=== PATIENT | male | born 1985 | race Caucasian/White ===

== ENCOUNTER 2020-07-12 18:17 | Emergency (ER) | payer OTHER ==
[~2020-07-12] VITALS: Ht 170.2 cm; Wt 63.5 kg
[2020-07-12 18:57] LABS: ABSOLUTE BASOPHILS 0.1 thou/uL (0.0-0.2); ABSOLUTE EOSINOPHILS 0.2 thou/uL (0.0-0.7); ABSOLUTE LYMPHOCYTES 2.7 thou/uL (0.8-5.3); ABSOLUTE MONOCYTES 1.2 thou/uL (0.0-1.2); ABSOLUTE NEUTROPHILS 7.1 thou/uL (1.6-8.1); BASOPHILS 1.1 %; EOSINOPHILS 1.9 %; HEMATOCRIT 48.2 % (42.0-52.0); HEMOGLOBIN 16.2 gm/dL (14.0-18.0); MCH 31.4 pg (26.0-34.0); MCHC 33.7 g/dL (28.0-37.0); MCV 93.1 fL (80.0-100.0); MONOCYTES 10.5 %; MPV 7.8 fl. (7.2-11.1); NUCLEATED RBCS 0 /100WBC; PLATELET COUNT* 236 thou/uL (150-400); POLYS 62.5 %; RBC 5.17 mil/uL (4.50-6.00); RDW-CV 13.5 % (10.5-14.5); WBC 11.4 thou/uL (4.0-11.0)
[2020-07-12 19:06] LABS: CALCIUM 8.7 mg/dL (8.5-10.1); CREATININE 1.1 mg/dL (0.6-1.3); POTASSIUM 3.8 mmol/L (3.5-5.1)
[2020-07-12 19:10] LABS: ALBUMIN 3.7 g/dL (3.4-5.0); TOTAL BILIRUBIN 0.3 mg/dL (<0.1-1.0); TOTAL PROTEIN 7.1 g/dL (6.4-8.2)
[2020-07-12 19:42] LABS: URINE BILIRUBIN NEGATIVE (Negative); URINE BLOOD 3+ (Negative); URINE CLARITY CLEAR; URINE COLOR YELLOW; URINE GLUCOSE-RANDOM NEGATIVE (Negative); URINE KETONES NEGATIVE (Negative); URINE LEUKOCYTES-REFLEX NEGATIVE (Negative); URINE NITRITE-REFLEX NEGATIVE (Negative); URINE PROTEIN NEGATIVE (Negative); URINE SPECIFIC GRAVITY >= 1.030 (1.005-1.030); URINE UROBILINOGEN 0.2 E.U./dl (0.2-1.0)
[2020-07-12 19:57] LABS: MUCUS 0-3 Light strn/LPF (None Seen); URINE RBC >20 Many /HPF (0-2)
[2020-07-12 19:58] LABS: AMP/METHAMP POSITIVE (Negative); BACTERIA-REFLEX None Seen /HPF (None Seen); BARBITURATES Negative (Negative); BENZODIAZEPINES Negative (Negative); CASTS None Seen /LPF (None Seen); COCAINE Negative (Negative); CRYSTALS None Seen /LPF (None Seen); METHADONE Negative (Negative); OPIATES Negative (Negative); PCP Negative (Negative); SQUAMOUS 0-3 Few /LPF (0-3); THC Negative (Negative); URINE WBC-REFLEX None Seen /HPF (0-5)
[2020-07-12] MEDS ORDERED: OMEPRAZOLE 20 M20 M1 PO (20:31)
[2020-07-12] MEDS ORDERED: CARAFATE1 GM PO (20:31)
[2020-07-12] MEDS ORDERED: ZOFRAN ODT4 MG PO (20:31)
[2020-07-12 20:43] VITALS: BP 119/72
--- NOTE | 2020-07-13 11:06 | EKG ---
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1985 Requested By: Georgina Martinez Order Number: [id number] MD: Patrick Castrejon Measurements Intervals [place] Rate: 73 P: 53 MI: 152 QRS: 142 QRSD: 107 T: 38 QT: 378 QTc: 417 Interpretive Statements Sinus rhythm Right axis deviation ST elev, probable normal early repol pattern No previous ECG available for comparison Electronically Signed On 07-13-2020 11:06:47 THERAPEUTIC ASSISTANT by Patrick Castrejon [email or web address] <ELECTRONICALLY SIGNED> By: Patrick Castrejon MD, [facility] 07/13/20 1106 1846 1846 Patrick Castrejon MD, [facility] /EPI
== END 2020-07-12 20:44 ==
LOC: M.ERS 18:17
PROVIDERS: Nurse Practitioner Family
DX: R10.13 Epigastric pain (principal); F17.210 Nicotine dependence, cigarettes, uncomplicated

== ENCOUNTER 2020-07-16 14:05 | Emergency (ER) | payer OTHER ==
[~2020-07-16] VITALS: Ht 170.2 cm; Wt 63.5 kg
[~2020-07-16 14:05] MED LIST: CARAFATE1 GM PO; OMEPRAZOLE 20 M20 M1 PO; ZOFRAN ODT4 MG PO
[2020-07-16 14:46] LABS: ABSOLUTE BASOPHILS 0.1 thou/uL (0.0-0.2); ABSOLUTE EOSINOPHILS 0.1 thou/uL (0.0-0.7); ABSOLUTE LYMPHOCYTES 2.2 thou/uL (0.8-5.3); ABSOLUTE MONOCYTES 0.7 thou/uL (0.0-1.2); ABSOLUTE NEUTROPHILS 8.1 thou/uL (1.6-8.1); BASOPHILS 0.8 %; EOSINOPHILS 0.8 %; HEMATOCRIT 47.2 % (42.0-52.0); LYMPHOCYTES 19.3 %; MCH 31.3 pg (26.0-34.0); MCV 92.2 fL (80.0-100.0); MONOCYTES 6.1 %; MPV 7.7 fl. (7.2-11.1); NUCLEATED RBCS 0 /100WBC; PLATELET COUNT* 243 thou/uL (150-400); RBC 5.12 mil/uL (4.50-6.00); RDW-CV 13.2 % (10.5-14.5); WBC 11.2 thou/uL (4.0-11.0)
[2020-07-16 15:04] LABS: CREATININE 1.1 mg/dL (0.6-1.3); POTASSIUM 4.1 mmol/L (3.5-5.1)
[2020-07-16 15:09] LABS: ALBUMIN 3.8 g/dL (3.4-5.0); TOTAL BILIRUBIN 0.4 mg/dL (<0.1-1.0); TOTAL PROTEIN 7.4 g/dL (6.4-8.2)
[2020-07-16 15:18] LABS: URINE BILIRUBIN NEGATIVE (Negative); URINE BLOOD NEGATIVE (Negative); URINE CLARITY CLEAR; URINE COLOR YELLOW; URINE GLUCOSE-RANDOM NEGATIVE (Negative); URINE KETONES NEGATIVE (Negative); URINE LEUKOCYTES-REFLEX NEGATIVE (Negative); URINE NITRITE-REFLEX NEGATIVE (Negative); URINE PROTEIN NEGATIVE (Negative); URINE SPECIFIC GRAVITY 1.015 (1.005-1.030); URINE UROBILINOGEN 0.2 E.U./dl (0.2-1.0)
[2020-07-16] MEDS ORDERED: ONDANSETRON ODT4 MG PO (15:57)
[2020-07-16] MEDS ORDERED: PEPCID20 MG PO (15:57)
[2020-07-16 16:11] VITALS: BP 101/79
== END 2020-07-16 16:11 | disposition home or self-care (01) ==
LOC: M.ERS 14:05
PROVIDERS: Physician Assistant
DX: R10.13 Epigastric pain (principal); R11.2 Nausea with vomiting, unspecified; F17.210 Nicotine dependence, cigarettes, uncomplicated

== ENCOUNTER 2020-10-21 15:02 | Emergency (ER) | payer OTHER ==
[~2020-10-21] VITALS: Ht 170.2 cm; Wt 63.5 kg
[~2020-10-21 15:02] MED LIST changes: +ONDANSETRON ODT4 MG PO; +PEPCID20 MG PO
[2020-10-21] MEDS ORDERED: PREDNISONE 10 M10 M1 PO (15:37)
[2020-10-21] MEDS ORDERED: DIPHENHIST50 MG PO (15:37)
[2020-10-21 15:45] VITALS: BP 108/73
== END 2020-10-21 15:45 | disposition home or self-care (01) ==
LOC: M.ERS 15:02
DX: L25.9 Unspecified contact dermatitis, unspecified cause (principal); F17.210 Nicotine dependence, cigarettes, uncomplicated